=== PATIENT | male | born 1960 | race Caucasian/White ===

== ENCOUNTER 2020-07-18 10:58 | Outpatient (CLI) | payer BC, SELFPAY | END 2020-07-18 10:59 | disposition home or self-care (01) | LOC: ANHCOVIDVC 10:58 | PROVIDERS: PCP Family Medicine | DX: Z23 Encounter for immunization (principal) | CPT/HCPCS: 0001A; 91300 ==

== ENCOUNTER 2020-08-08 10:52 | Outpatient (CLI) | payer BC, SELFPAY | END 2020-08-08 10:53 | disposition home or self-care (01) | LOC: ANHCOVIDVC 10:52 | PROVIDERS: PCP Family Medicine | DX: Z23 Encounter for immunization (principal) | CPT/HCPCS: 0002A; 91300 ==

== ENCOUNTER → 2020-10-05 03:14 | Outpatient (CLI) | payer BC, SELFPAY ==
[2020-10-05 19:46] LABS: SARS-CoV-2 RNA PCR Negative
== END ==
PROVIDERS: PCP Family Medicine; Visit Provider Internal Medicine Gastroenterology
DX: Z01.812 Encounter for preprocedural laboratory examination (principal); Z20.822 Contact with and (suspected) exposure to COVID-19
CPT/HCPCS: C9803; U0003; U0005

== ENCOUNTER 2020-10-09 01:25 | Day surgery (SDC) | payer BC, SELFPAY ==
[2020-09-24 15:14] VITALS: BMI 29.9
[2020-10-09 06:27] VITALS: BP 132/71; PULSE 65; RESP 18; TEMP 36.1; O2SAT 97
[2020-10-09] MEDS: LACTATED RINGERS 1,000 ML 150 ML IV CONT (06:35)
--- NOTE | 2020-10-09 07:08 | WPDANESEPPF ---
Anes - Initial Pre Proc Eval Procedure: Operation Date: 10/09/20 07:30 Proposed Procedures p Screening Colonoscopy - Vazquez Higginbotham MD Date/Time: 10/09/20 07:08 Surgeon: Vazquez Higginbotham MD Pre Op Diagnosis: neoplasm screening Patient Data Age: 60 Gender: M Height: 5 ft 5 in Weight: 83 kg Last Vital Signs Temp 96.9 F L 10/09/20 06:27 Pulse 65 10/09/20 06:27 Resp 18 10/09/20 06:27 BP 132/71 10/09/20 06:27 Pulse Ox 97 10/09/20 06:27 Allergies Allergy/AdvReac Type Severity Reaction Status Date / Time No Known Allergies Allergy Mild Verified 10/09/20 06:26 Home Medications Medication Instructions Recorded Confirmed Type aspirin 81 mg tablet,delayed 81 mg PO DAILY 05/01/19 09/24/20 History release tadalafil 10 mg tablet 10 mg PO DAILY PRN #9 tablet 12/18/19 09/24/20 Rx aripiprazole 5 mg tablet 5 mg PO DAILY #30 tablet 01/31/20 09/24/20 Rx atorvastatin 20 mg tablet 20 mg PO DAILY #90 tablet 07/25/20 09/24/20 Rx sertraline 100 mg tablet See Rx Instructions .ROUTE 07/25/20 09/24/20 Rx .COMPLEX #30 tablet Patient hx anesthesia problems: none Family hx anesthesia problems: none PMFSH Past Medical History Medical History (Updated 10/09/20 @ 07:07 by Alfa Amato MD) Mixed hyperlipidemia Obesity, unspecified Prehypertension Surgical History Surgical History H/O colonoscopy (~05/2008) Family History Family History Grandparent Diabetes mellitus Acute myocardial infarction Family history of malignant neoplasm Family history of coronary artery disease Father Hypertension, Onset Age: 60 Family history of elevated blood lipids, Onset Age: 60 Family history of cardiovascular disease, Onset Age: 60 Acute myocardial infarction, Onset Age: 60 Family history of malignant neoplasm Mother Family history of elevated blood lipids Sibling Acute myocardial infarction Family history of coronary artery disease Other Family history of arthritis Social History Social History (Reviewed 08/19/20 @ 14:46 by TAMMY Salguero Tobacco type: cigarettes Smokeless tobacco user: chewing tobacco Alcohol intake: current Drinks per week: 4 Substance use: never Substance use type: does not use Living arrangements: with family Gender identity (if verbalized by the patient): Male Sexual Orientation (if Verbalized by the Patient): Straight or Heterosexual Spiritual care concerns: No Anes - Eval Final PreProcedure Day of Procedure 10/09/20 07:08 Patient weight: overweight Heart: regular rate and rhythm Lungs: clear to auscultation Airway: Mallampati scale class II Neurological: alert and oriented Last oral intake: >/= 8 hours ASA classification: II Emergent: no Anesthetic plan: proceed Anesthesia type and monitoring: general GIVS and standard monitoring Informed Consent: The patient's anesthetic plan and its attendant risks and benefits were discussed with the patient/family/POA. Questions were solicited and answers provided to the satisfaction of the patient/family/POA.
--- NOTE | 2020-10-09 07:47 | WPDGICN ---
Assessment and Plan Assessment and plan (1) Encounter for screening colonoscopy: Code(s): Z12.11 - Encounter for screening for malignant neoplasm of colon Status: Acute Assessment and Plan: Patient presents for screening colonoscopy because of age. It has been more than 10 years since last exam. Further recommendations will be given after endoscopy. GI Consult Note Consult date/time: 10/09/20 07:47 HPI: Hema Nava is a 60 year old male Presents for neoplasia screening. Patient has a history of a colonoscopy 12 years ago. He states that his current weight appetite bowel movements are normal. He denies abdominal pain. He has had no bleeding. He denies abdominal pain. Family history is non contributory. Review of Systems Review of Systems: All systems reviewed & are unremarkable except as noted in HPI and below PMFSH Past Medical History Medical History (Updated 10/09/20 @ 07:48 by Vazquez Higginbotham MD) Mixed hyperlipidemia Obesity, unspecified Prehypertension Surgical History Surgical History H/O colonoscopy (~05/2008) Family History Family History Grandparent Diabetes mellitus Acute myocardial infarction Family history of malignant neoplasm Family history of coronary artery disease Father Hypertension, Onset Age: 60 Family history of elevated blood lipids, Onset Age: 60 Family history of cardiovascular disease, Onset Age: 60 Acute myocardial infarction, Onset Age: 60 Family history of malignant neoplasm Mother Family history of elevated blood lipids Sibling Acute myocardial infarction Family history of coronary artery disease Other Family history of arthritis Social History Social History Tobacco type: cigarettes Smokeless tobacco user: chewing tobacco Alcohol intake: current Drinks per week: 4 Substance use: never Substance use type: does not use Living arrangements: with family Gender identity (if verbalized by the patient): Male Sexual Orientation (if Verbalized by the Patient): Straight or Heterosexual Spiritual care concerns: No Meds Home Medications and Allergies Home Medications Medication Instructions Recorded Confirmed Type aspirin 81 mg tablet,delayed 81 mg PO DAILY 05/01/19 09/24/20 History release tadalafil 10 mg tablet 10 mg PO DAILY PRN #9 tablet 12/18/19 09/24/20 Rx aripiprazole 5 mg tablet 5 mg PO DAILY #30 tablet 01/31/20 09/24/20 Rx atorvastatin 20 mg tablet 20 mg PO DAILY #90 tablet 07/25/20 09/24/20 Rx sertraline 100 mg tablet See Rx Instructions .ROUTE 07/25/20 09/24/20 Rx .COMPLEX #30 tablet Allergies Allergy/AdvReac Type Severity Reaction Status Date / Time No Known Allergies Allergy Mild Verified 10/09/20 06:26 Vital Signs Vital Signs - 24 hr 10/09/20 06:27 Temperature 96.9 F L Pulse Rate 65 Respiratory Rate 18 Blood Pressure 132/71 Pulse Oximetry 97 Exam Narrative: Exam Narrative: Physical exam reveals patient to be alert. Vital signs stable. HEENT exam is unremarkable. Patient is anicteric. Lungs are clear to auscultation and percussion. Heart is without murmur or extra sounds. Abdominal exam bowel sounds are present soft nontender with no organomegaly. Digital external rectal exam is normal.
[2020-10-09 07:50] VITALS: BP 103/71; PULSE 62; RESP 12; O2SAT 93
[2020-10-09 08:00] VITALS: BP 121/82; BP 125/83; PULSE 58; PULSE 59; RESP 14; RESP 15; O2SAT 97
== END 2020-10-09 08:25 | disposition home or self-care (01) ==
PROVIDERS: PCP Family Medicine; Visit Provider Internal Medicine Gastroenterology
PROC: 0DJD8ZZ Inspection of Lower Intestinal Tract, Via Natural or Artificial Opening Endoscopic (ICD-10-PCS; CPT 45378; principal; 2020-10-09 07:30)
DX: Z12.11 Encounter for screening for malignant neoplasm of colon (principal); D12.0 Benign neoplasm of cecum; K64.8 Other hemorrhoids; E78.2 Mixed hyperlipidemia; E66.9 Obesity, unspecified; Z68.30 Body mass index [BMI] 30.0-30.9, adult; F17.210 Nicotine dependence, cigarettes, uncomplicated; F17.220 Nicotine dependence, chewing tobacco, uncomplicated; Z79.82 Long term (current) use of aspirin
CPT/HCPCS: 45385; 88305; J2001; J2704; J7120

== ENCOUNTER → 2021-06-06 08:10 | Outpatient (CLI) | payer BC, SELFPAY ==
--- NOTE | ~2021-06-06 | US_ITS ---
EXAMINATION: US abdomen limited EXAM DATE: 06/06/2021 08:45 INDICATION: R74.8 - Abnormal levels of other serum enzymes . TECHNIQUE: Multiple grayscale and Doppler images of the abdomen right upper quadrant were obtained (b y a technologist who performed the scan) and subsequently reviewed. There is no prior study for milton sheldon. FINDINGS: The pancreatic head and body are normal in appearance. The pancreatic tail is not visualized. There is echogenic liver parenchyma, hepatic steatosis. There are no focal liver lesions identified. Th ere is no evidence of intrahepatic biliary duct dilation. Portal venous flow was seen in the hepatop edal, normal direction and has normal Doppler waveform. No right-sided hydronephrosis. Common bile duct measures 3 mm, which is normal. The gallbladder wall is normal in thickness, with ex pected amount of distention. No sonographic evidence of pericholecystic fluid. There is no cholelit hiases. Technologist performing exam reports patient did not demonstrate sonographic Padgett's sign. Please note that this sign is less reliable in patients who have received pain medication. IMPRESSION: 1. Hepatic steatosis. Reviewed, dictated and finalized at location A. [facility] IMPRESSION: 1. Hepatic steatosis.
== END ==
PROVIDERS: PCP Family Medicine; Visit Provider Physician Assistant
DX: R74.8 Abnormal levels of other serum enzymes (principal); K76.0 Fatty (change of) liver, not elsewhere classified
CPT/HCPCS: 76705

== ENCOUNTER 2021-10-06 09:48 | Emergency (ER) | payer BC, SELFPAY ==
[2021-10-06 09:55] VITALS: BP 134/74; PULSE 81; RESP 16; TEMP 36.4; O2SAT 97
--- NOTE | 2021-10-06 09:59 | ED.URI ---
HPI - URI/Sore Throat General Chief Complaint: Upper Respiratory Infection Stated Complaint: COUGH Time Seen by Provider: 10/06/21 09:49 Source: patient and RN notes reviewed Mode of arrival: ambulatory Limitations: no limitations History of Present Illness HPI Narrative: Patient is a 61-year-old male who presents the urgent care with complaints of a cough. Patient states that it started on Wednesday and he has been taking Mucinex XR without much improvement. Patient denies of any wheezing, shortness of breath or chest pain. Patient denies of any fever, nausea or vomiting. Denies of any known exposures to COVID or other illness. Patient states he did have a negative COVID test on Wednesday. No other acute complaints. No acute distress noted. Patient aware of the plan of care. Some parts of this dictation were generated by voice recognition software and may contain typographical and/or grammatical inaccuracies. Related Data Home Medications Medication Instructions Recorded Confirmed aspirin 81 mg tablet,delayed 81 mg PO DAILY 05/01/19 10/06/21 release Allergies Allergy/AdvReac Type Severity Reaction Status Date / Time No Known Allergies Allergy Mild Verified 10/06/21 09:53 Review of Systems Review of Systems: CONSTITUTIONAL: Denies fever, chills, or sweats. EYES: Denies visual changes, redness, or discharge. ENT: Denies rhinorrhea, congestion, sore throat, or otalgia. CARDIOVASCULAR: Denies chest pain, palpitations, or edema. RESPIRATORY: Reports a dry nonproductive cough without dyspnea GASTROINTESTINAL: Denies abdominal pain, nausea, vomiting, or diarrhea. GENITOURINARY: Denies dysuria or hematuria. SKIN: Denies rash or itching. MUSCULOSKELETAL: Denies back pain, joint pain, or myalgia. NEUROLOGIC: Denies headache, numbness, or weakness. All other systems reviewed are negative, except as documented in HPI. [facility] Past Medical History Medical History (Updated 10/06/21 @ 10:06 by JOSE LUIS Berger) FHx: total knee replacement Hepatitis C antibody test negative (05/13/21) Mixed hyperlipidemia Obesity, unspecified Prehypertension Surgical History Surgical History (Updated 05/15/21 @ 11:12 by Talisha Oseguera CMA) H/O colonoscopy (~05/2008) History of carpal tunnel surgery Family History Family History (Reviewed 05/15/21 @ 11:12 by Talisha Oseguera [facility]) Grandparent Diabetes mellitus Acute myocardial infarction Family history of malignant neoplasm Family history of coronary artery disease Father Hypertension, Onset Age: 60 Family history of elevated blood lipids, Onset Age: 60 Family history of cardiovascular disease, Onset Age: 60 Acute myocardial infarction, Onset Age: 60 Family history of malignant neoplasm Mother Family history of elevated blood lipids Sibling Acute myocardial infarction Family history of coronary artery disease Other Family history of arthritis Social History Social History (Updated 05/15/21 @ 11:13 by Talisha Oseguera [facility]) Second hand tobacco smoke exposure: No Alcohol intake: current Drinks per week: 4 Substance use: never Substance use type: does not use Gender identity (if verbalized by the patient): Male Sexual Orientation (if Verbalized by the Patient): Straight or Heterosexual Spiritual care concerns: No Comments At the time of my signature, I reviewed and agree with the nursing past medical, surgical, social, and family history. There is no relevant family history pertinent to the patient complaint. Exam Narrative: GENERAL: This is a well-nourished, well-developed patient, in no apparent distress. HEAD: normocephalic, atraumatic. EYES: PERRL. Sclera clear/white. Vision is grossly intact. EARS: External ears normal, auditory canals clear and without drainage, TMs normal without perforation. Hearing grossly intact. NOSE: External nose normal with no obvious nasal discharge, nares without redness, no rhinorrhea. THROAT: M
== END 2021-10-06 10:12 | disposition home or self-care (01) ==
PROVIDERS: Emergency Provider Nurse Practitioner Family; PCP Family Medicine
DX: R05.9 Cough, unspecified (principal); E78.2 Mixed hyperlipidemia; E66.9 Obesity, unspecified; Z68.30 Body mass index [BMI] 30.0-30.9, adult; R03.0 Elevated blood-pressure reading, without diagnosis of hypertension; Z79.82 Long term (current) use of aspirin
CPT/HCPCS: 99213; G0463

== ENCOUNTER 2023-09-21 08:57 | Outpatient (CLI) | payer BC, SELFPAY ==
--- NOTE | ~2023-09-21 | NM_ITS ---
EXAMINATION: NM alma stress w perfusion DATE: 09/21/2023 10:59 INDICATION: Chest pain TECHNIQUE: Rest images were obtained following intravenous administration of 9.8 mCi Tc99m tetrofosmi n (Myoview). The patient was infused intravenously with Lexiscan (Regadenoson). Then, 32 mCi Tc99m te trofosmin (Myoview) was administered intravenously, and stress images were obtained. Data was reconst ructed into short axis and horizontal and vertical long axis SPECT images. Gated SPECT images were al so obtained. COMPARISON: None. FINDINGS: There is no definite reversible or fixed perfusion abnormality to suggest ischemia or infar ction. There is normal left ventricular chamber size, wall motion and ejection fraction. Left ventr icular ejection fraction measures 69%. IMPRESSION: 1. Normal myocardial perfusion at rest and during stress. 2. Left ventricular ejection fraction measuring 69%. Reviewed, dictated and finalized at location B.
--- NOTE | 2023-09-21 09:05 | EST_ITS ---
Patient Info Name: Hema Nava Age: 63 years : 1960 Gender: Male Ht: 65 in Wt: 195 lbs BSA: 2.05 m2 HR: 51 bpm BP: 105 / 65 mmHg Heart Rhythm: Sinus Rhythm Exam Date: 09/21/2023 9:46 AM Exam Location: Echo Lab Patient Status: Outpatient Admit Date: 09/21/2023 Staff Ordering Physician: Anamaria Leos Attending Provider: Anamaria Leos Exercise Technologist: Lola Fan CT Nurse: Samina Caceres APN Exam Type: CA stress alma w NM Study Info Indications R07.9 - Chest pain, unspecified A regadenoson stress test was performed. Summary 1. No abnormal ST/T wave changes diagnostic of ischemia with Lexiscan. 2. Occasional PVCs. 3. Please correlate with nuclear medicine images, reported separately. 4. Stress test supervised by Samina Caceres NP. Stress test interpreted by Truman Kerr MD. Protocol: Lexiscan Stress ECG Details Stage: REST Duration (min): 1 min : 2 sec HR (bpm): 52 SBP (mmHg): 105 DBP (mmHg): 65 Stage: REST Duration (min): 29 min : 7 sec HR (bpm): 51 SBP (mmHg): 105 DBP (mmHg): 65 Stage: STAGE 1 Duration (min): 1 min : 0 sec HR (bpm): 60 SBP (mmHg): 109 DBP (mmHg): 73 Stage: RECOVERY Duration (min): 1 min : 0 sec HR (bpm): 70 SBP (mmHg): 109 DBP (mmHg): 73 Stage: RECOVERY Duration (min): 2 min : 0 sec HR (bpm): 73 SBP (mmHg): 109 DBP (mmHg): 73 Stage: RECOVERY Duration (min): 3 min : 0 sec HR (bpm): 70 SBP (mmHg): 120 DBP (mmHg): 71 Stage: RECOVERY Duration (min): 3 min : 7 sec HR (bpm): 70 SBP (mmHg): 120 DBP (mmHg): 71 Rest HR: 51 bpm Peak HR: 75 bpm Rest Sys BP: 105 mmHg Peak Sys BP: 120 mmHg Max Pred HR: 158 bpm % Max Pred HR: 47 % Target HR: 134 bpm Max RPP: 9,000 bpm*mmHg Total Time: 1 min : 0 sec Rest Aguilar BP: 65 mmHg Peak Aguilar BP: 71 mmHg Total Dose: 0.4 mg Resting ECG Sinus rhythm. Stress ECG Sinus rhythm. No abnormal ST/T wave changes diagnostic of ischemia with Lexiscan. Arrhythmias Occasional PVCs. Report Signatures
== END 2023-09-21 08:58 | disposition home or self-care (01) ==
LOC: ANHCARD 09:00
PROVIDERS: PCP Family Medicine; Visit Provider Nurse Practitioner
DX: R07.9 Chest pain, unspecified (principal)
CPT/HCPCS: 78452; 93017; A9502; J2785

== ENCOUNTER 2024-08-31 08:00 | Outpatient (CLI) | payer BC, SELFPAY ==
--- NOTE | ~2024-08-31 | US_ITS ---
Abdominal Sonogram: Real-time sonographic imaging of the abdomen was performed. Clinical History: Abnormal serum enzyme levels Findings: The liver appears echogenic with no evidence of mass lesion or bile duct dilatation. Main portal vein demonstrates normal direction of flow. The spleen is normal in size without evidence of f ocal lesion. The gallbladder is well distended, and appears normal with no evidence of gallstone or wall thickening. The common bile duct measures 5 mm. The visualized pancreas, aorta, and IVC are unr emarkable. The right kidney measures 11.2 cm in length and the left kidney measures 11.6 cm. There is no hydronephrosis or renal calculus. Impression: Diffuse fatty infiltration of liver. Reviewed, dictated and finalized at location M. Impression: Diffuse fatty infiltration of liver.
== END 2024-08-31 08:01 | disposition home or self-care (01) ==
LOC: GOSHIMG 08:01
PROVIDERS: PCP Nurse Practitioner; Visit Provider Nurse Practitioner
DX: R74.8 Abnormal levels of other serum enzymes (principal); K76.0 Fatty (change of) liver, not elsewhere classified
CPT/HCPCS: 76700